=== PATIENT | male | born 1935 | race Caucasian/White ===

== ENCOUNTER 2018-09-08 15:09 | Emergency (ER) | payer OTHER ==
[2018-09-08] MEDS ORDERED: NORVASC5 MG PO (15:24)
[2018-09-08] MEDS ORDERED: PROAIR HFA8.5 GM INH (15:24)
[2018-09-08] MEDS ORDERED: ZESTRIL20 MG PO (15:24)
[2018-09-08] MEDS ORDERED: NORCO 5-325 TA1 EACH PO (18:19)
== END 2018-09-08 18:22 | disposition home or self-care (01) ==
LOC: ED 15:09
DX: S86.911A Strain of unspecified muscle(s) and tendon(s) at lower leg level, right leg, initial encounter (principal); M17.11 Unilateral primary osteoarthritis, right knee; Z79.899 Other long term (current) drug therapy; X50.1XXA Overexertion from prolonged static or awkward postures, initial encounter; Y93.89 Activity, other specified; Y92.89 Other specified places as the place of occurrence of the external cause; Y99.8 Other external cause status